=== PATIENT | male | born 1955 ===

== ENCOUNTER → 2023-03-09 01:37 | Outpatient (CLI) | payer MEDICARE, MEDICAID, SELFPAY ==
--- NOTE | 2023-03-09 | DI.RAD_ITS ---
Exam(s) RF MODIFIED SPEECH BA SWALLOW TECHNIQUE: Modified barium swallow was performed in conjunction with speech pathology. CONTRAST MATERIAL: Oral barium Oral water soluble contrast was administered. COMPARISON: No exams were available for comparison FINDINGS: Fluoroscopy was provided during modified barium swallow study performed in conjunction with the [facility] therapist. Please see that separate report for details. There does not appear to be evidence of aspiration on today's study. Incidentally noted was indentation of the posterior aspect of the barium column at C5-6 and C6-7 leve ls. IMPRESSION: No evidence of aspiration or penetration. RADIATION DOSE DELIVERED: rolando Maldonado=8.86 mGy
[2023-03-09] MEDS: Barium Sulfate 81% w/w for Oral Suspension 148 GM BTL PO (09:43)
[2023-03-09] MEDS: Barium Sulfate Oral Paste 40% W/V 230 ML TUBE PO (09:46)
[2023-03-09] MEDS: Barium Sulfate 40% W/V 240 ML BTL PO (09:47)
--- NOTE | 2023-03-09 16:32 | ST.MBS ---
Date of Service Date of service: 03/09/23 Time of Service: 09:00 Modified Barium Swallow Study Findings: Video fluoroscopic Swallowing Evaluation (VFSE) / Modified Barium Swallow Study (MBSS) Speech Language Pathology Report Patient referred for VFSE/MBSS from Dr. Mohinder Mehta given dysphagia symptoms. HPI & Patient report of function: Patient is a 67 year old male with history of hiatal hernia surgery, including lorenza fundoplication, in early November 2022. He states he tolerated the procedure well initially, but in weeks to follow started to experience significant difficulty swallowing solids. He states food gets stuck in his throat, and he will need to cough back up. This has contributed to significant weight loss (over 30 lbs) and high distress with eating. He has been pureeing some of his foods. He denies ongoing reflux symptoms, and feels this has been under control since the surgery. He is tolerating liquids without issue. He denies additional pertinent medical history. IMPRESSIONS: Mayco Romero was seen for an MBS on 03/09/23, revealing within functional limits oral pharygneal swallow function. Motor and sensory functioning are within normal limits, without evidence of penetration, aspiration, or pharyngeal retention. Of notice, there is mild posterior indentation of barium column at C5-C6 and greater so at C6-C7, indicating question of development osteophyte(s). While this was non-obstructive during the study - it could possibly explain symptoms, especially as we did not re-create his symptoms today. 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 In light of severity of symptoms/weight loss, FLAT FOLDING MACHINE OPERATOR recommends referral to ENT for nasolaryngoscopy to rule out pathology contributing to symptoms. Pending no additional ENT findings, recommend consideration of repeat MBS in 1-2 years for re-evaluation of potential osteophyte, pending symptom progression. No further FLAT FOLDING MACHINE OPERATOR intervention indicated at this time. Education/recommendations for diet modification reviewed with patient. Specialist referrals:? ENT Ancillary tests: May consider Nasolaryngoscopy RECOMMENDATIONS: Diet Texture Recommendation:? IDDSI LEVEL 7-Regular/Easy to Chew Solids (Add extra moisture/sauces/condiments to food. Chew food very well/thoroughly to applesauce consistency prior to swallowing). LIQUIDS 0-Thin Liquids MEDICATIONS Whole 0-Thin Liquids Risk Management Strategies:? Behavioral reflux precautions, including upright position during + 90 mins after meals. Small bites, approx [id number] Chew food thoroughly, to applesauce consistency. add extra sauces/condiments/gravies. PLAN: Therapy:No further FLAT FOLDING MACHINE OPERATOR services indicated. Education provided at time of evaluation as well as via follow up phone call. Follow-up exam: Recommend repeat VFSE/MBSS in 1-2 years to re-assess osteophyte. OBJECTIVE Videofluoroscopic Swallow Evaluation (VFSE/MBSS) was conducted in the lateral projection by Speech-Language Pathologist, in collaboration with Radiologist, to evaluate oropharyngeal swallow function. Anatomic view under fluoroscopy: WFL PO Barium Contrast Trials IDDSI Level 0 Varibar thin liquid (40% w/v) IDDSI Level 4 Varibar pudding/pureed/extremely thick (40% w/v) IDDSI Level 7 Regular Solid: 1/2 clifford cracker coated in 3 mL Varibar pudding MBSImP Component Scores COMPONENT Score and Description 1. 0 Lip closure (0-4) Resulted in no labial escape 2. 0 Hold Position (0-3) Maintained a cohesive bolus between tongue to palatal seal 3. 0 Bolus Preparation (0-4) Resulted in timely and efficient chewing and mashing 4. 0 Bolus Transport (0-4) Was with brisk tongue motion 5. 0 Oral Residue (0-4) Was not observed. There was complete oral clearance 6. 1 Swallow Initiation (0-4) Occurred when the bolus head was in valleculae 7. 0 Soft Palate Elevation (0-4) Resulted in no bolus between soft palate and the pharyngeal wall 8. 0 Laryngeal Elevation (0-3) Demonstrated complete superior movement of thyroid cartilage with complete approximation of arytenoids to epiglottic petiole 9. 0 Anterior Hyoid Motion (0-2) Demonstrated complete anterior movement 10. 0 Epiglottic Movement (0-2) Resulted in complete inversion 11. 0 Laryngeal Closure (0-2) Was complete with no air or contrast in laryngeal vestibule 12. 0 Pharyngeal Stripping Wave (0-2) Was present and complete 13. NA Pharyngeal Contraction (0-3) 14. 0 PES Opening (0-3) Was completely distended and complete duration with no obstruction of flow 15. 0 Tongue Base Retraction (0-4) Allowed no contrast between the tongue base and posterior pharyngeal wall 16. 0 Pharyngeal Residue (0-4) Was not present. There was complete pharyngeal clearance 17. NA Esophageal Clearance (0-4) Results COMPONENT Score and Description 1. 1 Oral Score (0-18) 2. 0 Pharyngeal Score (0-29) 3. 0 Esophageal Score (0-4) Penetration-Aspiration Scale COMPONENT Score and Description 1. 1 Thin liquid (1-8) Contrast did not enter the airway 2. NA Farnsworth thick (1-8) 3. NA Honey thick (1-8) 4. 1 Pudding thick (1-8) Contrast did not enter the airway 5. NA Cookie (1-8) Thank you for allowing us to take part in this patient's care. Please feel free to contact the [facility] Speech Language Pathology Department with any questions/concerns. Coding CPT Codes MOTION FLUOROSCOPY/SWALLOW - [id number] ([id number])
== END ==
PROVIDERS: Visit Provider Surgery
DX: R13.10 Dysphagia, unspecified (principal)
CPT/HCPCS: 92526; 92611; 74221

== ENCOUNTER 2023-12-23 11:00 | Outpatient (CLI) | payer MEDICARE, MEDICAID, SELFPAY ==
--- NOTE | 2023-12-23 12:30 | CCCE_ITS ---
Comprehensive Care Clinic Note Note: Mayco Romero, 1955, has a follow up appointment today to discuss and initiate a change in his HIV medication. This change has been elected due to the need for the Carafate qid and high dose Protonix to continue to control the GI symptoms that have persisted despite having a Maxim fundoplication in 2022, in addition to a hiatal hernia repair, he persisted with difficulty swallowing and reflux like pain. In April of this year, while wintering in [place], he had an EDG which showed peptic ulcer disease and an esophageal stricture. Carafate interferes with the absorption of his oral HIV medication and the frequency was reduced from qid to bid. He takes his po HIV medication on the opposite 6 hours. His HIV viral load has remained undetectable and he has not missed any doses of the Biktarvy. He has requested to transition to Cabenuva injectable HIV medication so when he has symptoms he is able to take the Carafate without fear of decreased absorption of the Biktary and developing drug resistant HIV. At this time his GI troubles are controlled relatively well. The only complaint he has today is the ongoing eruption of painful skin lesions in his scalp and on his back from the Prurigo nodularis for which he is followed at [facility] dermatology. He has an appointment with them soon for lidocaine injections to the lesions. He is not taking steroids at this time, nor an antibiotic. ROS: Denies fever, chills, night sweats, new rash, URI symptoms. Overall states he is feeling well PMH: HIV diagnosed in 1989 - Viral load has been undetectable with high CD4 count for almost 30 years as he started HAART as soon as it was available GERD/Hiatal Hernia/Peptic Ulcer Disease Esophageal stricture following Maxim fundoplication Insomnia Depression Prurigo nodularis - avoid sunlight PSH: Maxim fundoplication 2022 Medications Biktarvy - to be D/Cd today and start Cabenuva (Cabotegravir 600mg/3ml extended release/Rilpivirine 900mg/3ml extended release) Protonix (pantoprozole 40 mg bid escitalopram 20 mg daily Ambien 10 mg q HS (He had Ozempic RX from his PCP for weight loss, but d/c'd it due to worsening GI symptoms) Social HX: Tobacco: quit in the remote past ETOH: social Recreational drugs: rare MJ 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 Visited [place], joy[place] in [place], never travled to a tropical region. Animals: pet dog Food: No raw meat of dairy : No Children: 2 adult daughters - one in [place], one in [facility] OBJ: September 2023: CD4 1051, Viral Load <20 = undetectable VS: 98.1, 70, 12, 128/76, weight 176# Gen: WDWNL, AINAD, gait strong and steady Eyes: pupils 4mm, non-icteric, non-injected ENT: clear teeth in good repair Neck: supple, no adenopathy Chest/Lungs: Clear in all lobes CV: RRR, No MCRG Skin: dry, non erythematous, lesions on his scalp and a few scattered on his lower back ow clear NO peripheral edema A/P: #1. HIV - DX 1989 stable w undetectable viral load since starting HAART in the . D/C Biktarvy today and injections of Cabenuva given today and his inital dose, He will return on January 20, 2024 for the second in the series and then on February 17, 2024 for the third injections. After that he will have repeat blood work and then go to every other month injections. #2. Peptic Ulcer and esophageal srticture: RXs as prescribed by GI. F/U as scheduled. #3. Prurigo nodularis F/U w [facility] derm as scheduled and research alternative care for this condition since he is not getting the relief he desires from the lesions. #4. HM: Lipid profile last done 10/2022 w T.Cholestrol: 147, Trigs: 93, HDL: 40, LDL: 88; Colonoscopy 2019 w polyps found, repeat in 2024 Immunzations UTD w PCP #5. Depression: well controlled with RX and gardening activities, other social activities. Darcy Parikh NP
== END 2023-12-23 11:01 | disposition home or self-care (01) ==
LOC: CCC 12:29
PROVIDERS: PCP Family Medicine; Visit Provider Nurse Practitioner Family
DX: B20 Human immunodeficiency virus [HIV] disease (principal); Z79.899 Other long term (current) drug therapy
CPT/HCPCS: 99203; 99214

== ENCOUNTER 2024-01-20 11:00 | Outpatient (CLI) | payer MEDICARE, MEDICAID, SELFPAY ==
--- NOTE | 2024-01-20 13:05 | CCCE_ITS ---
Comprehensive Care Clinic Note Note: [facility] [address] [place], [place]? [id number] [facility] Visit for Medical Follow Up PATIENT NAME: Mayco Romero UNIT #: [id number] PRIMARY CARE PROVIDER: Seven Golden M.D. DATE/TIME OF SERVICE: 01/20/2024 : 1955 Comprehensive Care Clinic Note Note: Mayco Romero, 1955, has a follow up appointment today for F/U of HIV, his transition to injectable HIV medication, Cabenuva, having stopped the oral medication, Biktarvy, the day before the initial injections on 12/23/2023. He feels he is tolerating the new medication well now but had a low-grade continuous frontal headache for over a week after the first series of injections. ?It was like a sinus headache from pollen.? He had no other symptoms denying any neuro changes, worsening of GI symptoms or rash. He states the injection sites were sore for a couple days. This change was elected due to the need for the Carafate qid. Carafate interferes with the absorption of oral HIV medication. He also is prescribed high dose Protonix to continue to control the GI symptoms of difficulty swallowing and reflux like pain that have persisted despite having a Maxim fundoplication in 2022, in addition to a hiatal hernia repair. The frequency of the Carafate was reduced from qid to bid and he would take his po HIV medication on the opposite 6 hours. His HIV viral load did remain undetectable and he did not missed any doses of the Biktarvy but the GI symptoms were not as well controlled as when he was taking the Carafate qid. He requested to transition to Cabenuva injectable HIV medication so he is able to take the Carafate qid without fear of decreased absorption of the oral meds -Biktary - and developing drug resistant HIV. The only complaint he has today is the ongoing eruption of painful skin lesions in his scalp and on his back from the Prurigo nodularis for which he is followed at [facility] dermatology. He has an appointment with them in January for lidocaine injections to the lesions. He is not taking steroids at this time, nor an antibiotic. ROS: Denies fever, chills, night sweats, new rash, URI symptoms. Overall states he is feeling well PMH: HIV diagnosed in 1989 - Viral load has been undetectable with high CD4 count for almost 30 years as he started HAART as soon as it was available GERD/Hiatal Hernia/Peptic Ulcer Disease - In April of this year, while wintering in [place], he had an EDG which showed peptic ulcer disease and an esophageal stricture. 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 Visited [place], joy[place] in [place], never travled to a tropical region. Animals: pet dog Food: No raw meat of dairy : No Children: 2 adult daughters - one in [place], one in [facility] OBJ: September 2023: CD4 1051, Viral Load <20 = undetectable VS: 98.4, 74, 12, 120/70, weight 172# Gen: WDWNL, AINAD, gait strong and steady Eyes: pupils 5mm, non-icteric, non-injected ENT: clear Neck: supple, no adenopathy Chest/Lungs: Clear in all lobes CV: RRR, No MCRG Skin: dry, non erythematous, lesions on his scalp and a few scattered on his lower back ow clear No peripheral edema A/P: #1. HIV - DX 1989 stable w undetectable viral load since starting HAART in the . Second series of injections of Cabenuva given today, the 28 day doses for initiation of Cabenuva. Cabotegravir 600mg/3ml IM Ztrack LVG Rilpivirine 900mg/3ml IM Ztrack RVG His Follow up blood work and next in the injections will be determined by Maria De Jesus Germain and I will contact Mayco with this information. #2. Peptic Ulcer and esophageal srticture: RXs as prescribed by GI. F/U as scheduled. #3. Prurigo nodularis F/U w [facility] derm as scheduled and research alternative care for this condition since he is not getting the relief he desires from the lesions. #4. HM: Lipid profile last done 10/2022 w T.Cholestrol: 147, Trigs: 93, HDL: 40, LDL: 88; Colonoscopy 2019 w polyps found, repeat in 2024 Immunzations UTD w PCP. Flu vaccine and new Covid vaccine when available. #5. Depression: well controlled with RX and gardening activities, other social activities.
== END 2024-01-20 11:01 | disposition home or self-care (01) ==
LOC: CCC 12:35
PROVIDERS: PCP Family Medicine; Visit Provider Nurse Practitioner Family
DX: B20 Human immunodeficiency virus [HIV] disease (principal); Z79.899 Other long term (current) drug therapy
CPT/HCPCS: 99214

== ENCOUNTER 2024-03-14 14:35 | Outpatient (CLI) | payer MEDICARE, MEDICAID, SELFPAY ==
--- NOTE | 2024-03-14 14:40 | CCCE_ITS ---
Comprehensive Care Clinic Note Note: Mayco Romero, 1955, has follow up today for HIV and he is due for the injections of Cabenuva, having stopped the oral HIV medication, Biktarvy, on 12/23/2023 and received the initial injections of the Cabenuva. He is feeling very well with the transition from oral to injectable and this will be the third administration today as the last was 01/20/24. He is now on the 56 day regimen. The injections sites are sore for a day and then he has no discomfort. Rational for change in medication was due to interactions with medications needed to control his dysphasia and reflux S/P Maxim fundoplication in 2022. The Carafate reduces the absorption of oral antiretroviral medications (ART). ROS: Denies fever, chills, night sweats, rash other than his chronic scalp rash from the Prurigo nodularis. he has seen Derm at [facility] 2 weeks ago and will be starting a new medication for this condition. PMH: HIV DX 1989 - VL undetectable with high CD4 counts for about 30 years with no break in ART. GERD/Hiatal Hernia/Peptic Ulcer Disease: April 2023 EDG showed Peptic Ulcer and Esophogeal Stricture secondary to Maxim fundoplication in 2022 Prurgio nodularis - to avoid sunlight and use topicals, Will be starting a new injectable RX - see medications Insomnia & Depression Medications: canenuva (cabotegravir 600mh/3ml extended release/Rilpivirine 900mg/3ml extended release - q 56 days Z track-IM vent gluteus Protonix 40 mg bid escitalopram 20 mg daily Ambien 10 mg q HS ointments from Derm New Med: Nemluvio (nemolizumab-ilto) Injection - interaction check done in clinic today shows no interaction with Cabenuva although have asked [facility] designated HIV pharmacist to double check this. New to Social HX: Mayco will be traveling to [place] in May through the end of June. He will be due for the injections in the middle of June and we will look into having a clinic there administer the Cabenuva. 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 he feels relief but sad about it. 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 Administered today - Cabotegraiv 600mg/3ml Z track-IM RVG & Rilpivirine 900mg/3ml Ztrack IM LVG - well toerated He will be due for blood work soon and I will send a lab slip to [facility] Lab F/U with Dr. Pretty will be determined on the basis of the results. Next Injections scheduled for 05/09/24. - Prurgio nodularis. Hold off on starting the Nemluvio injection until the HIV designated phamacist at the medical center completes a more in depth interaction check. We will be in touch with Mayco about this soon. Darcy Parikh, UTILITY ACCOUNTS DIRECTOR
== END 2024-03-14 14:36 | disposition home or self-care (01) ==
LOC: CCC 14:39
PROVIDERS: PCP Family Medicine; Visit Provider Nurse Practitioner Family
DX: B20 Human immunodeficiency virus [HIV] disease (principal); Z79.899 Other long term (current) drug therapy
CPT/HCPCS: 99214

== ENCOUNTER 2024-05-11 13:30 | Outpatient (CLI) | payer MEDICARE, MEDICAID, SELFPAY ==
--- NOTE | 2024-05-11 14:46 | W.CCNOTE ---
Comprehensive Care Clinic Note Note: Date: 05/11/2024 1330 hours Mayco Romero, 1955, has follow up today for HIV and he is due for the injections of Cabenuva, having stopped the oral HIV medication, Biktarvy, on 12/23/2023 and received the initial injections of the Cabenuva. He has been feeling very well with the transition from oral to injectable and this will be the fourth administration today as the last was 03/14/24. He is on the 56 day regimen. The injections sites are sore for a day and then he has no discomfort and feels very well. Mayco and his housemate will be traveling to [place] in May and Mayco has the RX for the 30 day supply of Biktarvy he will need to start on july 06 ? when he would be due for the next Cabenuva Injections but there was no way to get them [place] Mayco is in agreement with this plan. He will return here in early July for resumption of the Cabenuva injections. 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 He has [place] [facility] [place]2 months. His GERD is controlled with diet and PPI. PMH: HIV DX 1989 - VL undetectable with high CD4 counts for about 30 years with no break in ART. He is currently undetectable with the injectable Cabenuva. The rational for change in medication was due to interactions with medications needed to control his dysphasia and reflux S/P Maxim fundoplication in 2022. The Carafate he was taking up until a short while ago particularly reduces the absorption of oral antiretroviral medications (ART). He was also having increased GERD symptoms with the oral meds. 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 He had this repair for a large hiatal hernia. Prurgio nodularis - to avoid sunlight and use topicals, Will be starting a new injectable RX - see medications Insomnia & Depression Medications: Canenuva (cabotegravir 600mh/3ml extended release/Rilpivirine 900mg/3ml extended release - q 56 days Z track-IM vent gluteus Protonix 40 mg bid escitalopram 20 mg daily Ambien 10 mg q HS ointments from Derm Nemluvio (nemolizumab-ilto) Injection ? prior to starting an interaction check was done showing no interaction with Cabenuva and the [facility] designated HIV pharmacist did double check this. Social HX: - Mayco will be traveling to [place] in May through the end of June. He would be due for the injections in the middle of June. Since he is away and will not be able to have the injections he will take a month of Biktarvey 1 tab daily and the Cabaneuva will be administered after completing that month of daily po medication. - Mayco is hoping for improvement in the relationships between his twin brother, with whom he is frequently at odds, and his 2 older brothers. 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 He is enjoying this very much. 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 Administered today - Cabotegraiv 600mg/3ml Z track-IM LVG & Rilpivirine 900mg/3ml Ztrack IM RVG - well toerated He will be due for blood work in 3 to 4 months and I will send a lab slip to [facility] Lab F/U with Dr. Pretty soon after these are done. Next Injections scheduled for August 03, 2024 @ 1:30 pm after he completes the oral medication, Biktarvy 1 po daily for a month - 30 days. - Prurgio nodularis. Continue the Nemluvio injection as he is getting some relief from this treatment. F/U with Derm.-GERD and esophageal motility disfunction ? medications as RXd now. He is off the Carafate so there is no interference with the oral HIV meds. Darcy Parikh NP
== END 2024-05-11 13:31 | disposition home or self-care (01) ==
LOC: CCC 14:45
PROVIDERS: PCP Family Medicine; Visit Provider Nurse Practitioner Family
DX: B20 Human immunodeficiency virus [HIV] disease (principal); Z79.899 Other long term (current) drug therapy
CPT/HCPCS: 96372; 99214

== ENCOUNTER 2024-08-31 14:32 | Outpatient (CLI) | payer MEDICARE, MEDICAID, SELFPAY ==
--- NOTE | 2024-08-31 15:09 | W.CCNOTE ---
[facility] Note Note: Mayco Romero?? Date of 1955 Date: 08/31/2024 1430 hours CC: Mayco Romero, 1955, has follow up today for HIV and he is due for the injections of Cabenuva, having stopped the oral HIV medication, Biktarvy, on 12/23/2023 and received the initial injections of the Cabenuva. He has been feeling very well with the transition from oral to injectable and this will be the fourth administration today as the last was 03/14/24. He is on the 56 day regimen. HPI: Mayco and his housemate traveled to [place] in May and Mayco had the RX for the 30 day supply of Biktarvy w 1 refill he started on July 06. This is when he would have been due for the next Cabenuva Injections but there was no way to get them administered [place] was [place]. 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 [place] [facility] [place]. His GERD is controlled with diet and PPI. He is no longer taking Carafate. PMH: HIV DX 1989 - VL undetectable with high CD4 counts for about 30 years with no break in ART. He is currently undetectable with the injectable Cabenuva. The rational for change in medication was due to interactions with medications needed to control his dysphasia and reflux S/P Maxim fundoplication in 2022. The Carafate he was taking up until a short while ago particularly reduces the absorption of oral antiretroviral medications (ART). He was also having increased GERD symptoms with the oral meds. 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 He had this repair for a large hiatal hernia. Prurgio nodularis - to avoid sunlight and use topicals, Will be starting a new injectable RX - see medications Insomnia & Depression Medications: Canenuva (cabotegravir 600mh/3ml extended release/Rilpivirine 900mg/3ml extended release - q 56 days Z track-IM vent gluteus Protonix 40 mg bid escitalopram 20 mg daily Ambien 10 mg q HS ointments from Derm Nemluvio (nemolizumab-ilto) Injection ? prior to starting an interaction check was done showing no interaction with Cabenuva and the [facility] designated HIV pharmacist did double check this. Social HX: - States he remained well during the trip south and had no issues with the medication. - Mayco is still hoping for improvement in the relationships between his twin brother, with whom he is frequently at odds, and his 2 older brothers. 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 OBJ: VS 98.2, 82, 14, 134/78, weight 154# AINAD non-icteric skin w/d and no rash other than a few nodular lesion on his scalp that are chronic no edema CV: RRR Lungs clear No edema Mood: euthymic, affect normal A/P: - HIV - Stable assisted with undetectable VL. Administered today - Cabotegraiv 600mg/3ml Z track-IM RVG & Rilpivirine 900mg/3ml Ztrack IM LVG - well toerated He will be due for blood work in a couple months and I will send a lab slip to [facility] Lab F/U with Dr. Pretty soon after these are done. Continue the Cabenuva as ordered. - Prurgio nodularis. Continue the Nemluvio injection as he is getting some relief from this treatment. F/U with Derm. - GERD and esophageal motility dysfunction ? medications as RXd now. He is off the Carafate so there is no interference with the meds. Darcy Parikh NP
== END 2024-08-31 14:33 | disposition home or self-care (01) ==
LOC: CCC 14:55
PROVIDERS: PCP Family Medicine; Visit Provider Nurse Practitioner Family
DX: B20 Human immunodeficiency virus [HIV] disease (principal); Z79.899 Other long term (current) drug therapy
CPT/HCPCS: 99204

== ENCOUNTER 2024-09-26 15:22 | Outpatient (CLI) | payer MEDICARE, MEDICAID, SELFPAY ==
--- NOTE | 2024-09-26 15:20 | W.CCNOTE ---
Com[facility] Care Clinic Note Note: Date: 09/25/2024 1330 hours Mayco Romero, 1955, has follow up today for HIV and he is due for the injections of Cabenuva, having stopped the oral HIV medication, Biktarvy, on 12/23/2023 and received the initial injections of the Cabenuva. He has been feeling very well with the transition from oral to injectable. The last was 08/03/24. He is on the 56 day regimen. The injections sites are sore for a day and then he has no discomfort and feels very well. ROS: Denies any illness since last seen, denies fever, chills, night sweats, rash other than his chronic scalp rash from the Prurigo Nodularis, which is now improving with the treatments from dermatology (DERM). 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 He has seen Derm at [facility] [place] -2 months. His GERD is controlled with diet and PPI. PMH: HIV DX 1989 - VL undetectable with high CD4 counts for about 30 years with no break in ART. He is currently undetectable with the injectable Cabenuva. The rational for change in medication was due to interactions with medications needed to control his dysphasia and reflux S/P Maxim fundoplication in 2022. The Carafate he was taking up until a few months ago particularly reduces the absorption of oral antiretroviral medications (ART). He was also having increased GERD symptoms with the oral meds. 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 He had this repair for a large hiatal hernia. Prurgio Nodularis - to avoid sunlight and use topicals, Has an injectable RX - see medications Insomnia & Depression Medications: Canenuva (cabotegravir 600mh/3ml extended release/Rilpivirine 900mg/3ml extended release - q 56 days Z track-IM vent gluteus Protonix 40 mg bid escitalopram 20 mg daily Ambien 10 mg q HS ointments from Derm Nemluvio (nemolizumab-ilto) Injection ? prior to starting an interaction check was done showing no interaction with Cabenuva and the [facility] designated HIV pharmacist did double check this. Voltera Pregabulin dupixant Social HX: - Mayco continues living with his long-term partner in [place] and gardens when the sun is not out. They are not sexually active. - Mayco is hoping for improvement in the relationships between his twin brother, with whom he is frequently at odds, and his 2 older brothers. 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 Administered today - Cabotegraiv 600mg/3ml Z track-IM RVG & Rilpivirine 900mg/3ml Ztrack IM LVG ([employer], Lot number [id number], exp 2026 - well tolerated He is due for blood work and is given a lab slip to [facility] Lab F/U with Dr. Pretty on Thursday, November 07, 2024 @ 11:00am. Next Injections scheduled for November 28, 2024 @ 11:00 am after he completes the oral medication, Biktarvy 1 po daily for a month - 30 days. - Prurgio Nodularis. Continue the Nemluvio injection as he is getting some relief from this treatment as well as the other medication as prescribed by Dermatology at [facility] [place] and F/U with them as scheduled.-GERD and esophageal motility dysfunction ? medications as RXd now. He is off the Carafate. Darcy Parikh NP
== END 2024-09-26 15:23 | disposition home or self-care (01) ==
LOC: CCC 15:22
PROVIDERS: PCP Family Medicine; Visit Provider Nurse Practitioner Family
DX: B20 Human immunodeficiency virus [HIV] disease (principal); Z79.899 Other long term (current) drug therapy
CPT/HCPCS: 99214

== ENCOUNTER 2024-11-21 13:44 | Outpatient (CLI) | payer MEDICARE, MEDICAID, SELFPAY ==
--- NOTE | 2024-11-23 15:00 | CCCE_ITS ---
Date of service: 11/21/24 Time of Service: 01:30 [facility] Clinic Note Note: Date: 11/21/2024 1330 hours Mayco Romero, 1955, has follow up today for HIV and he is due for the injections of Cabenuva, having stopped the oral HIV medication, Biktarvy, on 12/23/2023 and received the initial injections of the Cabenuva. He has been feeling very well with the transition from oral to injectable. The last was 09/25/24. He is on the 56 day regimen. The injections sites are sore for a day and then he has no discomfort and feels very well. ROS: Denies any illness since last seen, denies fever, chills, night sweats, rash other than his chronic scalp rash from the Prurigo Nodularis, which is now improving with the treatments from dermatology (DERM). He gets injections to the scalp and had oral medications as well. He has seen Derm at [facility] [place] 1 -2 months. His GERD is controlled with diet and PPI. The Sucralfate was D/C?d last year. PMH: HIV DX 1989 - VL undetectable with high CD4 counts for about 30 years with no break in ART. He had a detectable Viral Load of 101 on 09/29/[address] Pretty wanted Mayco to have it repeated in a couple months. He had transitioned back to Biktarvy in the winter for a trip via motor home for a bit more than a month ? 2 months and there was no place to get the injections. He tolerated this OK,? but it was a very stressful trip with vehicle problems and terrible, cold weather. He actually left early to return to [place] due to all the difficulties. The rational for change in medication was due to interactions with medications needed to control his dysphasia and reflux S/P Maxim fundoplication in 2022. The Carafate he was taking up until a few months ago particularly reduces the absorption of oral antiretroviral medications (ART). He was also having increased GERD symptoms with the oral meds. 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 He had this repair for a large hiatal hernia. Other medical Problems: Prurgio Nodularis - to avoid sunlight and use topicals, Has an injectable RX - see medications Insomnia & Depression Medications: Canenuva (cabotegravir 600mh/3ml extended release/Rilpivirine 900mg/3ml extended release - q 56 days Z track-IM vent gluteus Protonix 40 mg bid escitalopram 20 mg daily Ambien 10 mg q HS ointments from Derm Nemluvio (nemolizumab-ilto) Injection ? prior to starting an interaction check was done showing no interaction with Cabenuva and the [facility] designated HIV pharmacist did double check this. Voltera Pregabulin dupixant Social HX: - Mayco continues living with his long-term friend in [place] and gardens when the sun is not out. They are not sexually active. - Mayco is hoping for improvement in the relationships between his twin brother, with whom he is frequently at odds, and his 2 older brothers. 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 He thinks he would like other employment as well. - he is saddened to hear that the [facility] of [place] will be closing in December and his last Cabenuva injections will be on Jan 23. OBJ: VS 98.7, 88, 16, 122/70, weight 170# AINAD appearing well non-icteric skin w/d and no rash other than a few nodular lesion on his scalp that are chronic CV: RRR Lungs clear No peripheral edema Gait strong and steady Mood: euthymic, affect normal A/P: - HIV - Stable fci with a low detectable VL on 09/29/2024 after a very stressful long trip during the end of the winter and some switching of his HIV medications for this trip. *Administered today - Cabotegraiv 600mg/3ml Z track-IM LVG & Rilpivirine 900mg/3ml Ztrack IM RVG ([employer], Lot number [id number], exp 2026 - well tolerated He is due for a repeat HIV Viral Load ? RNA PCR - ?and is given a lab slip to [facility] Lab F/U with Dr. Pretty on Thursday, January 23, 2025 @ 1:30 pm. Next Injections scheduled for that day. - Prurgio Nodularis. Continue the Nemluvio injection as he is getting some relief from this treatment as well as the other medication as prescribed by Dermatology at [facility] [place] and F/U with them as scheduled.-GERD and esophageal motility dysfunction ? medications as RXd now. He is off the Carafate. Darcy Parikh NP
== END 2024-11-21 13:45 | disposition home or self-care (01) ==
LOC: CCC 11-23 13:47
PROVIDERS: PCP Family Medicine; Visit Provider Nurse Practitioner Family
DX: B20 Human immunodeficiency virus [HIV] disease (principal); Z79.899 Other long term (current) drug therapy
CPT/HCPCS: 96372